=== PATIENT | female | born 1990 | race Asian ===

== ENCOUNTER 2022-04-10 18:40 | Emergency (ER) | payer BC ==
[2022-04-10] MEDS ORDERED: Ciprofloxacin 250 MG Tab ONE (19:15)
[2022-04-10] MEDS ORDERED: Ondansetron 4 MG Tab.DIS ONE (19:15)
[2022-04-10] MEDS ORDERED: metroNIDAZOLE 500 MG Tab ONE (19:15)
== END 2022-04-10 19:30 | disposition home or self-care (01) ==
LOC: LB.ED 18:40
DX: K50.00 Crohn's disease of small intestine without complications (principal); Z88.8 Allergy status to other drugs, medicaments and biological substances; Z88.2 Allergy status to sulfonamides
CPT/HCPCS: 99283; A9270; Q0162; 99281